=== PATIENT | male | born 1990 | race Caucasian/White ===

== ENCOUNTER 2017-08-18 20:36 | Emergency (ER) | payer OTHER ==
[~2017-08-18] VITALS: Ht 182.9 cm; Wt 77.1 kg
[~2017-08-18 20:36] MED LIST: BACTRIM DS TAB1 EACH PO; HYDROCODONE-AP1 EAC6 PO; NAPROSYN500 MG PO; NOHOMEMEDICATIONS; PROMS25 WY RECTAL; SUBOXONE 8 MG-1 EAC3 SL
[2017-08-18] MEDS ORDERED: BUPRENORPHINE HC8 MG SUBLING (20:47)
[2017-08-18] MEDS ORDERED: ULTRAM 50MG TAB50 MG PO (21:25)
[2017-08-18] MEDS ORDERED: MOBIC7.5 MG PO (21:25)
== END 2017-08-18 22:05 | disposition home or self-care (01) ==
LOC: ER 20:36
DX: S90.121A Contusion of right lesser toe(s) without damage to nail, initial encounter (principal); F17.210 Nicotine dependence, cigarettes, uncomplicated; Z88.2 Allergy status to sulfonamides; W22.01XA Walked into wall, initial encounter; Y93.89 Activity, other specified; Y92.89 Other specified places as the place of occurrence of the external cause; Y99.8 Other external cause status

== ENCOUNTER 2018-02-13 23:21 | Emergency (ER) | payer OTHER ==
[~2018-02-13] VITALS: Ht 182.9 cm; Wt 81.7 kg
[~2018-02-13 23:21] MED LIST changes: +BUPRENORPHINE HC8 MG SUBLING; +MOBIC7.5 MG PO; +ULTRAM 50MG TAB50 MG PO
[2018-02-13 23:30] VITALS: BP 135/99
[2018-02-13] MEDS ORDERED: KEFLEX500 M1 PO (23:43)
[2018-02-13] MEDS ORDERED: CLEOCIN HCL150 MG PO (23:43)
== END 2018-02-14 00:36 | disposition home or self-care (01) ==
LOC: ER 23:21
DX: L03.031 Cellulitis of right toe (principal); F17.210 Nicotine dependence, cigarettes, uncomplicated; Z88.2 Allergy status to sulfonamides; W45.0XXA Nail entering through skin, initial encounter

== ENCOUNTER 2018-08-27 22:51 | Emergency (ER) | payer OTHER ==
[~2018-08-27] VITALS: Ht 180.3 cm; Wt 81.7 kg
[~2018-08-27 22:51] MED LIST changes: +CLEOCIN HCL150 MG PO; +KEFLEX500 M1 PO
[2018-08-27] MEDS ORDERED: ERYTHROMYCIN E3.5 G3 OPHTHALMIC (23:43)
[2018-08-27 23:48] VITALS: BP 104/83
== END 2018-08-27 23:49 | disposition home or self-care (01) ==
LOC: ER 22:51
DX: S05.02XA Injury of conjunctiva and corneal abrasion without foreign body, left eye, initial encounter (principal); F17.210 Nicotine dependence, cigarettes, uncomplicated; Z88.2 Allergy status to sulfonamides; W45.8XXA Other foreign body or object entering through skin, initial encounter; Y92.89 Other specified places as the place of occurrence of the external cause; Y93.H2 Activity, gardening and landscaping; Y99.8 Other external cause status

== ENCOUNTER 2018-11-04 18:43 | Emergency (ER) | payer OTHER ==
[~2018-11-04] VITALS: Ht 182.9 cm; Wt 81.7 kg
[~2018-11-04 18:43] MED LIST changes: +ERYTHROMYCIN E3.5 G3 OPHTHALMIC
[2018-11-04] MEDS ORDERED: AMPHETAMINE SAL30 MG PO (18:48)
[2018-11-04] MEDS ORDERED: KEFLEX500 M1 PO (20:02)
[2018-11-04] MEDS ORDERED: PREDNISONE 20 M20 MG PO (20:02)
[2018-11-04 20:15] VITALS: BP 123/84
== END 2018-11-04 20:16 | disposition home or self-care (01) ==
LOC: ER 18:43
DX: L25.9 Unspecified contact dermatitis, unspecified cause (principal); F17.210 Nicotine dependence, cigarettes, uncomplicated; Z88.2 Allergy status to sulfonamides

== ENCOUNTER 2020-01-03 08:10 | Emergency (ER) | payer OTHER ==
[~2020-01-03] VITALS: Ht 182.9 cm; Wt 81.7 kg
[~2020-01-03 08:10] MED LIST changes: +AMPHETAMINE SAL30 MG PO; +PREDNISONE 20 M20 MG PO
[2020-01-03 08:14] VITALS: BP 128/81
== END 2020-01-03 09:01 | disposition left against medical advice (07) ==
LOC: ER 08:10
DX: M79.675 Pain in left toe(s) (principal); F17.210 Nicotine dependence, cigarettes, uncomplicated

== ENCOUNTER 2020-01-24 10:15 | Emergency (ER) | payer OTHER ==
[~2020-01-24] VITALS: Ht 182.9 cm; Wt 81.7 kg
[2020-01-24 12:01] LABS: ABSOLUTE NEUTROPHILS 9.5 thou/uL (1.4-8.2); BASOPHILS 0.4 % (0.0-2.0); EOSINOPHILS 0.2 % (0.0-3.0); HEMATOCRIT 38.6 % (42.0-52.0); HEMOGLOBIN 13.5 gm/dL (14.0-18.0); LYMPHOCYTES 11.7 % (24.0-44.0); MCHC 35.1 g/dL (28.0-37.0); MCV 88.6 fL (80.0-100.0); MONOCYTES 11.2 % (1.0-8.0); PLATELET COUNT 193 thou/uL (150-400); POLYS 76.5 % (36.0-66.0); RBC 4.36 mil/uL (4.50-6.00); WBC 12.5 thou/uL (4.0-11.0)
[2020-01-24 12:09] LABS: CALCIUM 9.1 mg/dL (8.5-10.1); CREATININE 0.9 mg/dL (0.7-1.3); POTASSIUM 3.8 mmol/L (3.5-5.1)
[2020-01-24 12:39] LABS: URINE BILIRUBIN NEGATIVE (Negative); URINE BLOOD NEGATIVE (Negative); URINE CLARITY CLEAR; URINE COLOR YELLOW; URINE GLUCOSE-RANDOM* NEGATIVE (Negative); URINE KETONES NEGATIVE (Negative); URINE NITRITE-REFLEX NEGATIVE (Negative); URINE PROTEIN (DIPSTICK) NEGATIVE (Negative); URINE UROBILINOGEN 0.2 E.U./dl (0.2-1.0)
[2020-01-24 12:41] LABS: URINE LEUKOCYTES-REFLEX 1+ (Negative)
[2020-01-24 12:58] LABS: BACTERIA-REFLEX 1-9 Few /HPF (None Seen); CASTS None Seen /LPF (None Seen); CRYSTALS None Seen /LPF (None Seen); SQUAMOUS 0-3 Few /LPF (0-3); URINE RBC None Seen /HPF (0-2)
[2020-01-24] MEDS ORDERED: KEFLEX500 M1 PO (13:16)
[2020-01-24] MEDS ORDERED: MOBIC15 MG PO (13:16)
[2020-01-24 13:25] VITALS: BP 113/66
== END 2020-01-24 13:25 | disposition home or self-care (01) ==
LOC: ER 10:15
PROVIDERS: Emergency Medicine
DX: M25.551 Pain in right hip (principal); R11.2 Nausea with vomiting, unspecified; R51 Headache; F17.210 Nicotine dependence, cigarettes, uncomplicated; Z88.2 Allergy status to sulfonamides